=== PATIENT | male | born 1940 | race Caucasian/White ===

== ENCOUNTER 2023-03-15 12:57 | Outpatient (RCR) | payer MEDICARE, SELFPAY | END 2023-03-15 23:59 | disposition home or self-care (01) | LOC: RPT 12:57 | PROVIDERS: ATTENDING PHYSICIAN Registered Nurse | DX: M25.511 Pain in right shoulder (principal); Z73.6 Limitation of activities due to disability | CPT/HCPCS: 97163 ==

== ENCOUNTER 2023-03-17 21:47 | Emergency (ER) | payer MEDICARE, SELFPAY ==
[2023-03-17 21:52] VITALS: BP 0/0
[2023-03-17 22:07] LABS: % Basophils 0.3 % (0-2); % Eosinophils 0.1 % (0-6); % Immature Granulocytes 1.6 % (0-0.5); % Lymphocytes 33.5 % (20.5-51.1); % Monocytes 3.3 % (1.7-9.3); % Neutrophils 61.2 % (42.2-75.2); Absolute Immature Granulocytes 0.2 10^3/uL (0-0.05); Absolute Lymphocytes 3.9 10^3/uL (1.2-3.4); Absolute Monocytes 0.4 10^3/uL (0.1-0.6); Absolute Neutrophils 7.1 10^3/uL (1.4-6.5); Hematocrit 43.4 % (39.0-52.0); Hemoglobin 13.4 g/dL (13.0-18.0); Mean Corp Hgb Conc. 30.9 g/dL (33.0-37.0); Mean Platelet Volume 12.8 fL (7.4-10.4); Platelet Count 548 10^3/uL (130-400); Red Blood Cell Count 5.36 10^6/uL (4.70-6.10); White Blood Cell Count 11.7 10^3/uL (4.8-10.8)
[2023-03-17 22:18] LABS: INR 1.44; PT 17.3 Sec (11.4-14.6)
[2023-03-17 22:25] LABS: ALT (SGPT) 27 U/L (0-50); AST (SGOT) 32 U/L (17-59); Albumin 3.4 g/dl (3.5-5.0); Alkaline Phosphatase 96 U/L (38-126); Blood Urea Nitrogen 33 mg/dl (9-20); Calcium 8.7 mg/dl (8.4-10.2); Carbon Dioxide 16 mmol/L (22-30); Chloride 105 mmol/L (98-107); Glucose 209 mg/dl (70-99); Potassium 5.3 mmol/L (3.5-5.1); Sodium 137 mmol/L (135-145); Total Bilirubin 2.5 mg/dl (0.2-1.3); Total Protein 6.9 g/dl (6.3-8.2); eGFR 34.79
--- NOTE | 2023-03-17 22:33 | ED.GENMED ---
History of Present Illness
General
Chief Complaint: CODE
Source: family
Exam Limitations: clinical condition
Time Seen by Provider: 03/17/23 22:04
Nursing documentation reviewed up to this point in time: agreed with
History of Present Illness
History of Present Illness:
82-year-old male with a past medical history of hypertension, hyperlipidemia, pulmonary fibrosis and chronic respiratory failure on oxygen, A-fib on Eliquis who presents to the emergency department in cardiac arrest. According to family patient was
having difficulty with his breathing this evening just prior to arrival was apparently 'gasping for air' and they put him in the car to bring to the hospital. On the way to the hospital he had complete loss of consciousness. On arrival he was
unresponsive, fixed gaze with no pulse.
Past History
Past History
ED Past Medical History: HTN, Hypercholesterolemia and Other (Pulmonary fibrosis, polycythemia vera)
ED Past Surgical History: Cholecystectomy
Review of Systems
Review of Systems
Unable to obtain full review of systems at this time due to: due to acuity
All Other Systems: Not applicable
Phy Exam
Physical Exam
Physical Exam:
General: Unresponsive, CPR in progress from triage
Head: Normocephalic, atraumatic
Eyes: Conjunctiva normal, pupils fixed and dilated
Throat: Dry mucous membranes
Neck: Trachea midline
Lungs: Bilateral breath sounds present
Heart: Pulseless with CPR in progress
Abd: Nondistended
Neuro: Unresponsive
Skin: No signs of trauma
Extremities: Distal extremities cool to the touch, no pulses
Scores
Heart Failure Risk
Heart Failure Risk Score: Not Applicable
Heart Score for Chest Pain Patients
STEMI patient?: Not applicable
Withdrawal Assessment of Alcohol
Withdrawal Assessment Completed?: Not applicable
Course
Orders/Labs/Results
Orders:
Orders
03/17/23 21:48
Calcium CHLORIDE [Calcium Chloride 10% Syringe] 1,000 mg .ROUTE .STK-MED ONE
EPINEPHrine [Adrenalin 1 mg/10 ml] 3 mg .ROUTE .STK-MED ONE
Sodium Bicarbonate 100 meq .ROUTE .STK-MED ONE
03/17/23 21:57
Electrocardiogram (*1) Urgent
Reason for Study: Chest Pain
Cardiac Monitoring- Treatment ONCE
IV Insert/Care/Rem.- Treatment PRN
03/17/23 22:01
Complete Blood Count/With Diff Urgent
Comprehensive Metabolic Panel Urgent
Prothrombin Time Urgent
Troponin I Urgent
Abnormal Lab Results
03/17/23
22:01
WBC 11.7 H 10^3/uL
(4.8-10.8)
MCH 25.0 L pg
(27.0-31.0)
MCHC 30.9 L g/dL
(33.0-37.0)
RDW 18.0 H %
(11.5-14.5)
Plt Count 548 H 10^3/uL
(130-400)
MPV 12.8 H fL
(7.4-10.4)
Abs Immat Gran (auto) 0.2 H 10^3/uL
(0-0.05)
Absolute Neuts (auto) 7.1 H 10^3/uL
(1.4-6.5)
Absolute Lymphs (auto) 3.9 H 10^3/uL
(1.2-3.4)
Immature Gran % 1.6 H %
(0-0.5)
PT 17.3 H Sec
(11.4-14.6)
Potassium 5.3 H mmol/L
(3.5-5.1)
Carbon Dioxide 16 L mmol/L
(22-30)
BUN 33 H mg/dl
(9-20)
Creatinine 1.9 H mg/dL
(0.7-1.3)
Glucose 209 H mg/dl
(70-99)
Total Bilirubin 2.5 H mg/dl
(0.2-1.3)
Troponin I 0.195 H* ng/ml
Albumin 3.4 L g/dl
(3.5-5.0)
03/17/23 22:01
03/17/23 22:01
Vital Signs
Initial and Last Documented VS:
Initial Vital Signs
Pulse Resp BP Pulse Ox
0 0 0/0 42
03/17/23 21:52 03/17/23 21:52 03/17/23 21:52 03/17/23 21:52
Last Documented Vital Signs
Pulse Resp BP Pulse Ox
0 0 0/0 42
03/17/23 21:52 03/17/23 21:52 03/17/23 21:52 03/17/23 21:52
Procedures
Intubations
Procedure completed by: Thompson Lazo MD
Method of Intubation: glidescope
Tube size (cm): 8.0
Placement confirmed by: auscutation, capnography and direct visualization
Breath sounds after intubation: equal
Intubation complications: no complications
IV Access
Indication: Emergent access required
Performed by:: Thompson Lazo MD
Site:: right pretibial IO
MDM/Problems Addressed
Differential Diagnosis Includes:
Cardiac arrest�differential diagnosis includes hypoxemia related to pulmonary fibrosis, acute DC, massive pulmonary embolism, electrolyte derangement
MDM/Problems Addressed:
82-year-old male presents in cardiac arrest�apparently was having breathing difficulties this evening and had loss of consciousness on the way to the hospital for at least 15 minutes per family. Arrives pulseless with fixed gaze and cool
extremities. CPR was initiated in triage patient was taken to the resuscitation bay. Bagging in progress. Respiratory paged and at bedside. He was completely unclothed and right pretibial IO placed by me. Initial rhythm noted to be asystole.
He was intubated by me as documented in procedure note. Please see nursing code sheet for full documentation but patient had 24 minutes of ACLS here�multiple rounds of epinephrine, sodium bicarbonate; was also given a dose of calcium gluconate.
Rhythm was essentially persistent asystole�there was one questionable very fine V-fib versus asystole with artifact for which patient was shocked x 1. Unfortunately after total downtime of approximately 40 minutes with persistent asystole and no
cardiac activity on ultrasound at bedside, patient was pronounced at 10:10 PM. Based on very limited diagnostic/clinical picture question whether this may have been hypoxemic arrest related to pulmonary fibrosis given his asystole although
patient did not improve with intubation. Differential would also include acute DC or massive PE although somewhat less likely given patient is on Eliquis. Case was discussed with medical terminologist who released the case (Rafaela Hyman). Nurse
discussed with [facility]. Family at bedside.
Chronic conditions affecting care:
Pulmonary fibrosis
*Pulse Oximetry
Patient hypoxic: yes
*Critical Care Note
Total Time (30-74mins, 75-104mins- exclusive of procedures): 30
comment:
Critical care statement: A total of 30 minutes of critical care time was provided for this patient. This includes management of unstable vital signs, evaluation of the patient at bedside, frequent reassessment, discussion with
consultants/hospitalist, and review of pertinent medical records. This time was separate from time utilized to perform any aforementioned documented procedures
Data Reviewed
Source: family
Patient Management
Discussion with other providers: Other (Discussed with medical terminologist)
Escalation/DeEscalation of care consider admission/obs:
ED Attending Note
-
Portions of this chart may have been created with voice recognition software.� Occasional wrong word or��sound alike� substitutions may have occurred due to the inherent limitations of voice recognition software.
Discharge Plan
Departure
Patient Disposition:
Date of Disposition: 03/17/23
Time of Disposition: 22:15
Discharge Problem:
Cardiac arrest
Prescriptions:
No Action
hydroxyurea 500 mg Capsule
500 mg PO DAILY
prednisone 10 mg tablet
40 mg PO DAILY
Rx Instructions:
Take 4 tabs (40mg) Daily for 14 days (Until Next ), then begin 3.5 tabs (35mg) Daily
atorvastatin 20 mg Tablet
20 mg PO HS
pantoprazole 20 mg Tablet,Delayed Release (Dr/Ec)
20 mg PO DAILY
PreserVision AREDS-2 250-90-40-1 mg Capsule
1 tab PO DAILY
metoprolol succinate 100 mg Tablet Extended Release 24 Hr
100 mg PO DAILY Qty: 30 0RF
Eliquis 5 mg Tablet
5 mg PO BID Qty: 30 0RF
Interventions
Interventions:
*Risk Screen - Suicide Last Done: 03/17/23 21:52
*General Assessment Last Done: 03/17/23 21:52
*ED COVID-19 Vaccine History Last Done: 03/17/23 21:52
ED- Cardiac Assessment Last Done: 03/17/23 21:52
ED- Pulmonary Assessment Last Done: 03/17/23 21:52
[2023-03-17 22:34] LABS: Troponin I 0.195 ng/ml
--- NOTE | 2023-03-17 22:49 | EDRN ---
Pt. brought in by family, in cardiac arrest. Refer to Code 9 sheet for documentation. TOD 22:10.
== END 2023-03-18 00:48 | disposition expired ==
LOC: EMR 21:47
PROVIDERS: EMERGENCY PHYSICIAN Emergency Medicine
DX: I46.9 Cardiac arrest, cause unspecified (principal); J84.10 Pulmonary fibrosis, unspecified; Z79.01 Long term (current) use of anticoagulants; Z99.81 Dependence on supplemental oxygen; Z90.49 Acquired absence of other specified parts of digestive tract
CPT/HCPCS: 99291; 31500; 80053; 84484; 85025; 85610